=== PATIENT | male | born 1945 | race American Indian/Alaskan Native ===

== ENCOUNTER 2016-08-07 06:41 | Day surgery (SDC) | payer MEDICARE ==
[2016-08-07 07:35] VITALS: BMI 35.6
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
[2016-08-07] MEDS ORDERED: Propofol 10 mg/ml Inj (20 ML) ONE (09:00)
[2016-08-07 09:39] VITALS: TEMP 97.7
[2016-08-07 10:09] VITALS: O2SAT 97
[2016-08-07 10:46] VITALS: BP 101/53; PULSE 50; RESP 14
== END 2016-08-07 10:40 | disposition home or self-care (01) ==
LOC: C.ENDO 06:41
PROVIDERS: ATTEND Internal Medicine Gastroenterology
DX: K92.2 Gastrointestinal hemorrhage, unspecified (principal); K64.8 Other hemorrhoids; D12.5 Benign neoplasm of sigmoid colon; K57.30 Diverticulosis of large intestine without perforation or abscess without bleeding
CPT/HCPCS: 45385; 82948; 88305; J2704